=== PATIENT | female | born 1945 | race Caucasian/White ===

== ENCOUNTER 2021-08-14 17:19 | Emergency (ER) | payer MEDICARE, BC ==
[2021-08-14 18:21] LABS: Hemoglobin 12.5 g/dL (12.0-15.5); Mean Corpuscular Hemoglobin 30.2 pg (27.0-33.0); Mean Corpuscular Volume 86.2 fl (81.6-98.3); Mean Platelet Volume 9.3 fl (7.4-10.4); Platelet Count 360 10x3/uL (150-450); RBC Distribution Width 13.2 % (11.5-14.5); Red Blood Cell (RBC) Count 4.14 10x6/uL (3.90-5.03); White Blood Cell (WBC) Count 23.1 10x3/uL (3.5-10.5)
[2021-08-14 18:22] LABS: MDiff Complete? YES
[2021-08-14 18:34] LABS: ALT (SGPT) 18 U/L (8-55); AST (SGOT) 19 U/L (5-34); Albumin 3.7 g/dL (3.4-4.8); Alkaline Phosphatase 110 U/L (40-110); Anion Gap 16 mmol/L (10-20); BUN (Urea Nitrogen) 15 mg/dL (9.8-20.1); Bilirubin, Total 0.5 mg/dL (0.2-1.2); Calc. Creatinine Clearance 0 mL/min (70-130); Carbon Dioxide 23 mmol/L (23-31); Chloride 103 mmol/L (98-107); Globulin 2.4 g/dL (2.4-3.5); Glucose 127 mg/dL (83-110); Protein, Total 6.1 g/dL (5.8-8.1); Sodium 138 mmol/L (136-145)
[2021-08-14 18:43] LABS: Band 10 % (5-11); Eosinophils 1 % (0-10); Lymphocytes 5 % (21-51); Monocytes 3 % (0-10); Neutrophil 81 % (42-75); Platelet Morphology Comment Appears Adequate
[2021-08-14] MEDS ORDERED: Acetaminophen 500 MG TAB ONE (19:39)
[2021-08-14] MEDS ORDERED: Cefepime 2 GM VIAL ONE (20:55)
[2021-08-14] MEDS ORDERED: cefTRIAXone\\ROCEPHIN 2 GM VIAL ONE (20:57)
[2021-08-14] MEDS ORDERED: Azithromycin 250 MG TAB ONE (21:37)
[2021-08-14] MEDS ORDERED: Ventolin HFA Inhaler 60 PUFF INHALER ONE (21:40)
== END 2021-08-14 21:46 | disposition home or self-care (01) ==
LOC: CSHERS 17:19
DX: J18.9 Pneumonia, unspecified organism (principal); I10 Essential (primary) hypertension
CPT/HCPCS: 36415; 71045; 71275; 80053; 83605; 83880; 84484; 85025; 87040; 93005; 96374; J0692; J0696

== ENCOUNTER 2023-02-14 12:57 | Outpatient (CLI) | payer MEDICARE, BC | END 2023-02-14 12:58 | disposition home or self-care (01) | LOC: CSHCT 12:57 | PROVIDERS: ATTEND Internal Medicine | DX: R42 Dizziness and giddiness (principal); R51.9 Headache, unspecified | CPT/HCPCS: 70450 ==

== ENCOUNTER 2024-11-27 09:24 | Outpatient (CLI) | payer MEDICARE, BC ==
[2024-11-27 10:18] LABS: Estimated GFR - POC 58.0
== END 2024-11-27 09:25 | disposition home or self-care (01) ==
LOC: CSHMRI 09:24
PROVIDERS: ATTEND Physician Assistant Medical
DX: K74.3 Primary biliary cirrhosis (principal); K21.9 Gastro-esophageal reflux disease without esophagitis; K86.2 Cyst of pancreas; Z90.49 Acquired absence of other specified parts of digestive tract; K83.8 Other specified diseases of biliary tract
CPT/HCPCS: 36415; 74183; 82565

== ENCOUNTER 2025-01-31 13:14 | Outpatient (CLI) | payer MEDICARE, BC ==
[2025-01-31 13:42] LABS: Estimated GFR - POC 52.0
== END 2025-01-31 13:15 | disposition home or self-care (01) ==
LOC: CSHMRI 13:14
PROVIDERS: ATTEND Internal Medicine
DX: R51.9 Headache, unspecified (principal)
CPT/HCPCS: 36415; 70544; 70553; 76376; 82565